=== PATIENT | male | born 1930 | race Caucasian/White ===

== ENCOUNTER → 2018-06-01 | Outpatient (CLI) | payer MEDICARE, OTHER | END | disposition home or self-care (01) | LOC: SHCH 12:44 → EDUNIT# 06-20 11:00 | PROVIDERS: ATTEND Internal Medicine Cardiovascular Disease | DX: I08.1 Rheumatic disorders of both mitral and tricuspid valves (principal); I10 Essential (primary) hypertension; I42.0 Dilated cardiomyopathy | CPT/HCPCS: 93306 ==

== ENCOUNTER → 2018-06-10 | Outpatient (CLI) | payer MEDICARE ==
[~2018-06-10] MED LIST: REGADENOSON 0.4 MG/5 ML PF SYG IVP SCH
== END | disposition home or self-care (01) ==
LOC: SHCH 08:23
PROVIDERS: ATTEND Internal Medicine Cardiovascular Disease
DX: I51.7 Cardiomegaly (principal)
CPT/HCPCS: 78452; 93017; 96374; A9500 ×2; J2785

== ENCOUNTER 2018-07-20 10:52 | Inpatient (IN) | payer MEDICARE | END 2018-07-23 13:40 | disposition home or self-care (01) | LOC: EDH 10:52 → 2DH 07-21 14:36 → EDHIP 15:27 | DX: E86.0 Dehydration (principal); D68.59 Other primary thrombophilia; I42.0 Dilated cardiomyopathy ==

== ENCOUNTER → 2018-07-25 | Outpatient (CLI) | payer MEDICARE ==
[~2018-07-25] MED LIST changes: +APIX5TAB PO; +ATOR40TA69 PO; +DIGO125T87 PO; +FURO20TA4 PO; +METO-391 PO; -REGADENOSON 0.4 MG/5 ML PF SYG IVP SCH; +SPIR25TA6 PO
== END | disposition home or self-care (01) ==
LOC: RAH 14:57
PROVIDERS: ATTEND Internal Medicine Cardiovascular Disease
DX: I82.621 Acute embolism and thrombosis of deep veins of right upper extremity (principal)
CPT/HCPCS: 93971

== ENCOUNTER 2018-09-15 11:57 | Observation (INO) | payer MEDICARE ==
[2018-09-14 09:50] VITALS: BP 82/65
[2018-09-14 10:32] LABS: BASOPHILS % (AUTO) 0.6 % (0.0-5.0); EOSINOPHILS % (AUTO) 3.4 % (0.0-8.0); HEMATOCRIT 56.9 % (42-54); LYMPHOCYTES % (AUTO) 27.7 % (21.0-51.0); MEAN CORPUSCULAR HEMOGLOBIN 33.2 pg (27.0-33.0); MEAN CORPUSCULAR HGB CONC 33.4 g/dL (32.0-36.0); MEAN CORPUSCULAR VOLUME 99.4 fL (79-99); NEUTROPHILS % (AUTO) 55.3 % (40.0-77.0); NUCLEATED RED BLOOD CELLS 0.1 % (0.0-0.19); PLATELET COUNT (AUTO) 227 K/uL (130-400); RED BLOOD CELL COUNT(AUTO) 5.72 MIL/uL (4.50-6.20); RED CELL DISTRIBUTION WIDTH 14.2 % (11.0-15.5); WHITE BLOOD COUNT (AUTO) 9.7 K/uL (4.8-10.8)
[2018-09-14 10:44] LABS: INR 1.07 (0.85-1.15); PARTIAL THROMBOPLASTIN TIME 32.3 SEC (26.3-35.5); PROTHROMBIN TIME 11.2 SEC (9.6-11.6)
--- NOTE | 2018-09-14 10:45 | NUR ---
SEIZURE PATIENT'S SPOUSE STATED MR. HELM HAD A SEIZURE 2 MONTHS AGO WHILE IN THE HOSPITAL DUE TO LOW BLOOD PRESSURES AND TO ENTRESTO. PATIENT DOES NOT SUFFER FROM SEIZURES AND HAS NOT HAD ANOTHER SEIZURE SINCE THEN.
[2018-09-14 10:48] LABS: CREATININE 1.2 mg/dL (0.5-1.5); POTASSIUM 4.6 mmol/L (3.5-5.1)
[2018-09-15] VITALS (9 sets, daily range): BP systolic 104–115; BP diastolic 47–90
[~2018-09-15] VITALS: Ht 175.3 cm; Wt 88.9 kg
[~2018-09-15 11:57] MED LIST changes: +CEFAZOLIN SODIUM 1 GM VIAL IVP SCH
[2018-09-15] MEDS: SODIUM CHLORIDE 0.9% 1000ML 1,000 ML IV SCH ×2 (13:51→20:51)
[2018-09-15] MEDS ORDERED: MEPERIDINE-PF 25 MG/ML SYG ONE ×3 (15:20→17:51)
[2018-09-15] MEDS ORDERED: LIDOCAINE HCL 1% 20 ML VIAL ONE (15:20)
[2018-09-15] MEDS ORDERED: MIDAZOLAM HCL 1 MG/ML 2ML VIAL ONE ×3 (15:20→17:51)
[2018-09-15] MEDS ORDERED: CEFAZOLIN SODIUM 1 GM VIAL ONE (15:21)
[2018-09-15] MEDS ORDERED: LIDOCAINE HCL 1% MDV 50ML VIAL ONE (15:22)
[2018-09-15] MEDS ORDERED: BUPIVACAINE/PF 0.25% 30ML VIAL IJ ONE (16:10)
[2018-09-15] MEDS ORDERED: IOHEXOL-350 50ML VIAL IV ONE (16:25)
[2018-09-15] MEDS ORDERED: ATORVASTATIN CALCIUM 40 MG TABLET PO SCH (21:00)
[2018-09-16 03:30] VITALS: BP 110/77
[2018-09-16 07:00] VITALS: BP 125/84
[2018-09-16] MEDS ORDERED: FUROSEMIDE 20 MG TABLET PO SCH (09:00)
[2018-09-16] MEDS ORDERED: SPIRONOLACTONE 25 MG TAB PO SCH (09:00)
[2018-09-16 11:00] VITALS: BP 114/76
--- NOTE | 2018-09-16 13:00 | NUR ---
Patient discharged home in stable condition. Dressing to left chest wall changed using non adaptic and opsite dressing. Pt tolerated well. Dressing to right groin remained dry and intact and instructed to removed tonight. Instructed pt/ if any s/s of bleeding apply pressure and call 911. report ss of bleeding right away. Instructed to keep incision to left chest wall dry and cover when showering. Ok to wet after 5 days as per orders and instructed steri strips to fall off on their own. Instructed to report s/s of infection such as fever, chills, foul odor or drainage. Call 911 if chest pain, SOB, changes in mental status, nausea or vomitting and/or pain. Instructed not to elevate left arm, submerge in water, no driving until cleared by doctor and avoid raising left arm. Take medications as prescibed. Start Eliquis on Wednesday as per Dr. Perez. IV and Telepack removed. Pt given dc appt with Dr. perez. Pt/ verbalized understanding to all teaching.
== END 2018-09-16 13:45 | disposition home or self-care (01) ==
LOC: DAH 11:57 → 2DH 11:58
PROVIDERS: ADMIT Internal Medicine; ATTEND Internal Medicine
DX: I11.0 Hypertensive heart disease with heart failure (principal); I50.42 Chronic combined systolic (congestive) and diastolic (congestive) heart failure; G40.909 Epilepsy, unspecified, not intractable, without status epilepticus; H26.9 Unspecified cataract; I25.2 Old myocardial infarction; Z85.46 Personal history of malignant neoplasm of prostate; Z87.891 Personal history of nicotine dependence; Z98.41 Cataract extraction status, right eye; Z98.42 Cataract extraction status, left eye; Z79.899 Other long term (current) drug therapy
CPT/HCPCS: 33225; 33249; 36415; 71045; 80048; 85025; 85610; 85730; 93005 ×2; 93650; A4606; A4649; C1732 ×2; C1769 ×2; C1882; C1893; C1894; C1895 ×2; C1900; G0378 ×18; J0690; J1644; J2175 ×3; J2250 ×3; J3490 ×2; J7030; Q9967; 99156; 99157